=== PATIENT | male | born 1950 | race Hispanic/Latino ===

== ENCOUNTER 2018-08-21 18:17 | Observation (INO) | payer OTHER ==
[~2018-08-21] VITALS: Ht 165.1 cm; Wt 91.3 kg
[2018-08-21 18:32] LABS: BASOPHILS % (AUTO) 1.3 % (0.0-5.0); EOSINOPHILS % (AUTO) 4.3 % (0.0-8.0); HEMATOCRIT 44.8 % (42-54); LYMPHOCYTES % (AUTO) 31.9 % (21.0-51.0); MEAN CORPUSCULAR HEMOGLOBIN 30.8 pg (27.0-33.0); MEAN CORPUSCULAR HGB CONC 33.8 g/dL (32.0-36.0); MEAN CORPUSCULAR VOLUME 90.9 fL (79-99); MONOCYTES % (AUTO) 7.8 % (3.0-13.0); NEUTROPHILS % (AUTO) 54.7 % (40.0-77.0); NUCLEATED RED BLOOD CELLS 0.1 % (0.0-0.19); PLATELET COUNT (AUTO) 105 K/uL (130-400); RED BLOOD CELL COUNT(AUTO) 4.93 MIL/uL (4.50-6.20); RED CELL DISTRIBUTION WIDTH 13.8 % (11.0-15.5); WHITE BLOOD COUNT (AUTO) 6.1 K/uL (4.8-10.8)
[2018-08-21 18:46] LABS: APPEARANCE,URINE Clear (CLEAR); BILIRUBIN,URINE Negative (NEGATIVE); COLOR,URINE Yellow (YELLOW); GLUCOSE, URINE (UA) Negative (NEGATIVE); KETONES,URINE Negative (NEGATIVE); LEUKOCYTE ESTERASE ,URINE Negative (NEGATIVE); NITRATE,URINE Negative (NEGATIVE); OCCULT BLOOD,URINE Negative (NEGATIVE); PROTEIN,URINE Negative (NEGATIVE)
[2018-08-21 18:47] LABS: POTASSIUM 4.2 mmol/L (3.5-5.1)
[2018-08-21] MEDS ORDERED: NITROGLYCERIN 0.4 MG SL TAB SL ONE (18:49)
[2018-08-21] MEDS ORDERED: ASPIRIN 325 MG TABLET ONE (18:49)
[2018-08-21] MEDS ORDERED: SODIUM CHLORIDE 0.9% 500ML 500 ML IV ONE (18:49)
[2018-08-21 18:52] LABS: ALBUMIN 3.7 g/dL (3.5-5.0); BILIRUBIN,TOTAL 0.3 mg/dL (0.2-1.0); TOTAL PROTEIN, SERUM 7.2 g/dL (6.0-8.3)
[2018-08-21 18:54] LABS: AMPHET/METH SCREEN,URINE NEGATIVE (NEGATIVE); BARBITURATE SCREEN, URINE NEGATIVE (NEGATIVE); BENZODIAZEPINES SCREEN,URINE NEGATIVE (NEGATIVE); CANNABINOID SCREEN,URINE NEGATIVE (NEGATIVE); COCAINE SCREEN,URINE NEGATIVE (NEGATIVE); OPIATE SCREEN,URINE NEGATIVE (NEGATIVE); PHENCYCLIDINE SCREEN,URINE NEGATIVE (NEGATIVE)
[2018-08-21] MEDS: ATORVASTATIN CALCIUM 20 MG TABLET PO SCH (21:00)
[2018-08-21] MEDS ORDERED: NITROGLYCERIN 0.4 MG SL TAB SL PRN (21:00)
[2018-08-21] MEDS ORDERED: ONDANSETRON HCL 4 MG/2 ML VIAL IV PRN (21:00)
[2018-08-21] MEDS ORDERED: MORPHINE SULFATE 2 MG/ML 1ML SYG IV PRN (21:00)
[2018-08-21] MEDS ORDERED: ACETAMINOPHEN 325 MG TAB PO PRN (21:00)
[2018-08-21] MEDS ORDERED: ATORVASTATIN CALCIUM 20 MG TABLET ONE (21:12)
[2018-08-21 21:24] LABS: CHOLESTEROL 180 mg/dL (<200); TRIGLYCERIDES 121 mg/dL (30-200)
[2018-08-21 21:25] LABS: HDL CHOLESTEROL 39 mg/dL (29-71); LDL DIRECT 129 mg/dL (0-99)
[2018-08-21 21:43] VITALS: BP 137/81
[2018-08-21 23:25] VITALS: BP 115/65
[2018-08-22 00:38] LABS: CREATINE KINASE, TOTAL 70 U/L (21-232); MYOGLOBIN 54 ng/mL (10-92); TROPONIN I < 0.04 ng/mL (0.00-0.06)
[2018-08-22 04:25] VITALS: BP 119/62
[2018-08-22 06:32] LABS: CREATINE KINASE, TOTAL 62 U/L (21-232); MYOGLOBIN 30 ng/mL (10-92); TROPONIN I < 0.04 ng/mL (0.00-0.06)
[2018-08-22 08:00] VITALS: BP 127/78
[2018-08-22] MEDS ORDERED: PANTOPRAZOLE SODIUM 40 MG TABLET.DR PO SCH (09:00)
[2018-08-22] MEDS ORDERED: ENOXAPARIN SODIUM 40 MG/0.4 ML SYRINGE SQ SCH (09:00)
[2018-08-22] MEDS ORDERED: ASPIRIN 81MG TAB.CHEW PO SCH (09:00)
[2018-08-22] MEDS: METOPROLOL TARTRATE 25 MG TAB PO SCH ×2 (09:00→22:21)
[2018-08-22 12:00] VITALS: BP 116/75
[2018-08-22 12:35] LABS: HEMOGLOBIN A1C 6.1 % (4.0-6.0)
[2018-08-22 16:00] VITALS: BP 111/64
--- NOTE | 2018-08-22 16:00 | NUR ---
[employer]; [employer], [employer], EMPLOYED, NO MOBILITY DEFICITS, HAS [employer], JUST NEW TO MEDICARE/MANAGED MEDICARE. HAS NEVER HAD A PRIMARY MD BEFORE "BECAUSE HAS NEVER BEEN SICK' HAS APPT [facility] THIS WEEK, CANNOT REMEMBER NAME, PLAN HOME, ENCOURAGED TO ESTABLISH HIMSELF W A PRIMARY PHYSICIAN Addendum: 08/22/18 at 1914 by ZAYDA ARGUELLO RN CM Amended: Links added.
[2018-08-22 19:15] VITALS: BP 127/74
[2018-08-22] MEDS: ATORVASTATIN CALCIUM 20 MG TABLET PO SCH (22:20)
[2018-08-22 23:57] VITALS: BP 120/66
[2018-08-23 03:43] VITALS: BP 131/74
[2018-08-23 04:37] LABS: BASOPHILS % (AUTO) 1.1 % (0.0-5.0); EOSINOPHILS % (AUTO) 5.2 % (0.0-8.0); HEMATOCRIT 43.3 % (42-54); LYMPHOCYTES % (AUTO) 30.5 % (21.0-51.0); MEAN CORPUSCULAR HEMOGLOBIN 30.6 pg (27.0-33.0); MEAN CORPUSCULAR HGB CONC 33.3 g/dL (32.0-36.0); MONOCYTES % (AUTO) 7.4 % (3.0-13.0); NEUTROPHILS % (AUTO) 55.8 % (40.0-77.0); PLATELET COUNT (AUTO) 103 K/uL (130-400); RED CELL DISTRIBUTION WIDTH 13.8 % (11.0-15.5); WHITE BLOOD COUNT (AUTO) 5.5 K/uL (4.8-10.8)
[2018-08-23 04:45] LABS: CREATININE 1.1 mg/dL (0.5-1.5)
[2018-08-23] MEDS ORDERED: ASPI-1005 PO (05:43)
[2018-08-23] MEDS ORDERED: METO25 PO (05:43)
[2018-08-23] MEDS ORDERED: ATOR20TA65 PO (05:43)
[2018-08-23 07:30] VITALS: BP 116/73
--- NOTE | 2018-08-23 08:40 | NUR ---
NOTE DISCHARGE INSTRUCTIONS GIVEN TO PATIENT IN [place] AT THIS TIME. VERBALIZED UNDERSTANDING. INSTRUCTED TO SCHEDULE DOCTOR'S APPOINTMENT FOR 3 DAYS AND ASK FOR CARDIOLOGY REFERRAL AND CONSULT. REFER TO DC SUMMARY.
== END 2018-08-23 09:13 | disposition home or self-care (01) ==
LOC: EDH 18:17 → EDHIP 20:58 → 3AH 21:43
PROVIDERS: ADMIT Internal Medicine; ATTEND Internal Medicine
DX: R07.89 Other chest pain (principal); K29.70 Gastritis, unspecified, without bleeding; F17.210 Nicotine dependence, cigarettes, uncomplicated; Z79.899 Other long term (current) drug therapy
CPT/HCPCS: 36415 ×3; 71045; 80048; 80053; 80061; 80305; 81003; 82550 ×3; 83036; 83690; 83874 ×2; 83880; 84484 ×3; 85025 ×2; 93005; 96372; 99284; G0378 ×36; J1650; J7040

== ENCOUNTER 2021-05-16 17:54 | Observation (INO) | payer OTHER ==
[~2021-05-16] VITALS: Ht 165.1 cm; Wt 93.0 kg
[~2021-05-16 17:54] MED LIST: ASPI-1005 PO; ATOR20TA65 PO
[2021-05-16 18:30] LABS: BASOPHILS % (AUTO) 0.8 % (0.0-5.0); EOSINOPHILS % (AUTO) 5.7 % (0.0-8.0); HEMATOCRIT 44.4 % (42-54); LYMPHOCYTES % (AUTO) 27.3 % (21.0-51.0); MEAN CORPUSCULAR HEMOGLOBIN 30.3 pg (27.0-33.0); MEAN CORPUSCULAR HGB CONC 33.8 g/dL (32.0-36.0); MEAN CORPUSCULAR VOLUME 89.7 fL (79-99); MONOCYTES % (AUTO) 8.2 % (3.0-13.0); NEUTROPHILS % (AUTO) 57.7 % (40.0-77.0); PLATELET COUNT (AUTO) 125 K/uL (130-400); RED BLOOD CELL COUNT(AUTO) 4.95 MIL/uL (4.50-6.20); RED CELL DISTRIBUTION WIDTH 13.7 % (11.0-15.5); WHITE BLOOD COUNT (AUTO) 7.6 K/uL (4.8-10.8)
[2021-05-16 18:32] LABS: APPEARANCE,URINE Clear (CLEAR); BILIRUBIN,URINE Negative (NEGATIVE); COLOR,URINE Yellow (YELLOW); GLUCOSE, URINE (UA) Negative (NEGATIVE); KETONES,URINE Negative (NEGATIVE); LEUKOCYTE ESTERASE ,URINE Negative (NEGATIVE); NITRATE,URINE Negative (NEGATIVE); OCCULT BLOOD,URINE Negative (NEGATIVE); PH,URINE 5.5 (5.0-8.0); PROTEIN,URINE Negative (NEGATIVE)
[2021-05-16] MEDS ORDERED: NITROGLYCERIN 0.4 MG SL TAB SL ONE (18:38)
[2021-05-16] MEDS ORDERED: NITROGLYCERIN 1GM OINT 1 INCH/1GM TD ONE ×2 (18:38→19:00)
[2021-05-16] MEDS ORDERED: ASPIRIN 325MG TAB ONE (18:38)
[2021-05-16 18:43] LABS: AMPHET/METH SCREEN,URINE NEGATIVE (NEGATIVE); BARBITURATE SCREEN, URINE NEGATIVE (NEGATIVE); BENZODIAZEPINES SCREEN,URINE NEGATIVE (NEGATIVE); CANNABINOID SCREEN,URINE NEGATIVE (NEGATIVE); COCAINE SCREEN,URINE NEGATIVE (NEGATIVE); OPIATE SCREEN,URINE NEGATIVE (NEGATIVE); PHENCYCLIDINE SCREEN,URINE NEGATIVE (NEGATIVE)
[2021-05-16 18:49] LABS: CREATININE 1.3 mg/dL (0.5-1.5); POTASSIUM 4.1 mmol/L (3.5-5.1)
[2021-05-16 18:51] LABS: B-TYPE NATRIURETIC PEPTIDE 21 pg/mL (0-100)
[2021-05-16 18:52] LABS: PROTHROMBIN TIME 10.9 SEC (9.6-11.6)
[2021-05-16 18:53] LABS: ALBUMIN 3.9 g/dL (3.5-5.0); BILIRUBIN,TOTAL 0.3 mg/dL (0.2-1.0); TOTAL PROTEIN, SERUM 7.5 g/dL (6.0-8.3)
[2021-05-16] MEDS ORDERED: NITROGLYCERIN 0.4 MG SL TAB SL PRN (19:00)
[2021-05-16] MEDS ORDERED: ASPIRIN 325MG TAB PO ONE (19:00)
[2021-05-16] MEDS ORDERED: HYDRALAZINE 20MG/ML VIAL IV PRN (20:30)
[2021-05-16] MEDS ORDERED: ALPRAZOLAM 0.25 MG TABLET PO PRN (20:30)
[2021-05-16] MEDS ORDERED: ACETAMINOPHEN 325 MG TAB PO PRN ×2 (20:30)
[2021-05-16] MEDS ORDERED: METOPROLOL TARTRATE 1 MG/ML 5ML VIAL IV PRN (20:30)
[2021-05-16] MEDS: ATORVASTATIN 40 MG TABLET PO SCH (22:33)
[2021-05-17 02:08] LABS: BASOPHILS % (AUTO) 0.8 % (0.0-5.0); EOSINOPHILS % (AUTO) 6.7 % (0.0-8.0); HEMATOCRIT 39.1 % (42-54); LYMPHOCYTES % (AUTO) 26.8 % (21.0-51.0); MEAN CORPUSCULAR HEMOGLOBIN 30.8 pg (27.0-33.0); MEAN CORPUSCULAR HGB CONC 34.3 g/dL (32.0-36.0); MEAN CORPUSCULAR VOLUME 89.9 fL (79-99); MONOCYTES % (AUTO) 8.6 % (3.0-13.0); NEUTROPHILS % (AUTO) 56.6 % (40.0-77.0); PLATELET COUNT (AUTO) 112 K/uL (130-400); RED BLOOD CELL COUNT(AUTO) 4.35 MIL/uL (4.50-6.20); RED CELL DISTRIBUTION WIDTH 13.7 % (11.0-15.5); WHITE BLOOD COUNT (AUTO) 6.4 K/uL (4.8-10.8)
[2021-05-17 02:31] LABS: B-TYPE NATRIURETIC PEPTIDE 12 pg/mL (0-100)
[2021-05-17 02:34] LABS: CREATININE 1.1 mg/dL (0.5-1.5); MAGNESIUM 2.1 mg/dL (1.80-2.40); PHOSPHORUS 3.5 mg/dL (2.5-4.9); POTASSIUM 3.5 mmol/L (3.5-5.1); THYROID STIMULATING HORMONE 4.29 uIU/mL (0.36-3.74)
[2021-05-17 03:38] VITALS: BP 97/60
[2021-05-17 07:00] VITALS: BP 105/59
[2021-05-17] MEDS ORDERED: REGADENOSON 0.4 MG/5 ML PF SYG IVP SCH (08:00)
[2021-05-17] MEDS: PANTOPRAZOLE 40 MG/VIAL IVP SCH (09:07)
[2021-05-17] MEDS: ENOXAPARIN SODIUM 30 MG/0.3 ML SQ SCH (09:08)
[2021-05-17] MEDS: ASPIRIN 325MG TAB PO SCH (09:08)
[2021-05-17 11:00] VITALS: BP 128/58
[2021-05-17 16:00] VITALS: BP 133/62
[2021-05-17 20:00] VITALS: BP 114/55
[2021-05-17] MEDS: ATORVASTATIN 40 MG TABLET PO SCH (20:31)
[2021-05-18] VITALS: BP 121/58
[2021-05-18 04:00] VITALS: BP 118/67
[2021-05-18 04:16] LABS: HEMATOCRIT 42.1 % (42-54); MEAN CORPUSCULAR HGB CONC 33.5 g/dL (32.0-36.0); MEAN CORPUSCULAR VOLUME 89.6 fL (79-99); RED BLOOD CELL COUNT(AUTO) 4.7 MIL/uL (4.50-6.20); RED CELL DISTRIBUTION WIDTH 13.4 % (11.0-15.5); WHITE BLOOD COUNT (AUTO) 5.8 K/uL (4.8-10.8)
[2021-05-18 04:19] LABS: HEMOGLOBIN A1C 5.8 % (4.0-6.0)
[2021-05-18 08:00] VITALS: BP 122/56
[2021-05-18] MEDS: ENOXAPARIN SODIUM 30 MG/0.3 ML SQ SCH (09:00)
[2021-05-18] MEDS ORDERED: PANT40TA PO (10:37)
[2021-05-18] MEDS: ASPIRIN 325MG TAB PO SCH (10:51)
[2021-05-18] MEDS: PANTOPRAZOLE 40 MG/VIAL IVP SCH (10:51)
[2021-05-18 12:00] VITALS: BP 148/61
== END 2021-05-18 13:30 | disposition home or self-care (01) ==
LOC: EDH 17:54 → EDHIP 20:26 → 4CH 23:27
PROVIDERS: ADMIT Internal Medicine Critical Care Medicine; ATTEND Internal Medicine Critical Care Medicine
DX: R07.89 Other chest pain (principal); M47.812 Spondylosis without myelopathy or radiculopathy, cervical region; M47.816 Spondylosis without myelopathy or radiculopathy, lumbar region; R00.1 Bradycardia, unspecified; F17.210 Nicotine dependence, cigarettes, uncomplicated; Z79.82 Long term (current) use of aspirin; Z79.899 Other long term (current) drug therapy
CPT/HCPCS: 36415; 71045; 72125; 72131; 78452; 80048; 80053; 80305; 81003; 82550; 83036; 83735; 83880; 84100; 84443; 84484; 85025; 85027; 85610; 93005; 93017; 96372; 96374; 96376; A9500; C9113; G0378; J1650; J2785

== ENCOUNTER 2022-08-21 15:34 | Emergency (ER) | payer OTHER ==
[~2022-08-21] VITALS: Ht 167.6 cm; Wt 86.2 kg
[~2022-08-21 15:34] MED LIST changes: +PANT40TA PO
[2022-08-21 15:44] VITALS: BP 130/80
[2022-08-21 16:28] LABS: APPEARANCE,URINE CLOUDY (CLEAR); BILIRUBIN,URINE NEGATIVE (NEGATIVE); COLOR,URINE YELLOW (YELLOW); GLUCOSE, URINE (UA) 30 mg/dL (NEGATIVE); KETONES,URINE NEGATIVE (NEGATIVE); LEUKOCYTE ESTERASE ,URINE 250 Leu/uL (NEGATIVE); NITRATE,URINE NEGATIVE (NEGATIVE); OCCULT BLOOD,URINE LARGE (NEGATIVE); PH,URINE 6.5 (5.0-8.0); PROTEIN,URINE 300 mg/dL (NEGATIVE); UROBILINOGEN,URINE 0.2 mg/dL (0.2-1.0)
[2022-08-21 16:32] LABS: BACTERIA,URINE RARE /HPF (None Seen); MUCUS,URINE RARE LPF (None Seen); RBC,URINE >100 /HPF (0-1); WBC,URINE >100 /HPF (0-1); YEAST,URINE BUDDING FEW /HPF (None Seen)
[2022-08-21 16:37] LABS: BASOPHILS % (AUTO) 0.3 % (0.0-5.0); EOSINOPHILS % (AUTO) 0.3 % (0.0-8.0); HEMATOCRIT 36.7 % (42-54); LYMPHOCYTES % (AUTO) 5.7 % (21.0-51.0); MEAN CORPUSCULAR HEMOGLOBIN 30.1 pg (27.0-33.0); MEAN CORPUSCULAR HGB CONC 33.8 g/dL (32.0-36.0); MEAN CORPUSCULAR VOLUME 89.1 fL (79-99); MONOCYTES % (AUTO) 5.8 % (3.0-13.0); NEUTROPHILS % (AUTO) 86.7 % (40.0-77.0); PLATELET COUNT (AUTO) 202 K/uL (130-400); RED BLOOD CELL COUNT(AUTO) 4.12 MIL/uL (4.50-6.20); RED CELL DISTRIBUTION WIDTH 13.7 % (11.0-15.5); WHITE BLOOD COUNT (AUTO) 17.3 K/uL (4.8-10.8)
[2022-08-21 16:58] LABS: CREATININE 1.3 mg/dL (0.5-1.5); POTASSIUM 3.6 mmol/L (3.5-5.1)
[2022-08-21 17:03] LABS: ALBUMIN 2.6 g/dL (3.5-5.0); TOTAL PROTEIN, SERUM 6.4 g/dL (6.0-8.3)
[2022-08-21] MEDS ORDERED: CEFTRIAXONE 2GM VIAL IVP ONE (17:30)
[2022-08-21] MEDS ORDERED: IBUP-1493 PO (17:34)
[2022-08-21] MEDS ORDERED: CEPH500C2 PO (17:34)
== END 2022-08-21 18:06 | disposition home or self-care (01) ==
LOC: EDH 15:34
DX: N39.0 Urinary tract infection, site not specified (principal); Z20.822 Contact with and (suspected) exposure to COVID-19; Z79.899 Other long term (current) drug therapy; Z79.82 Long term (current) use of aspirin
CPT/HCPCS: 99283; 96374; 87635; 80053; 85025; 87040 ×2; 87088; 83605; 81001; 36415; C9803; J0696

== ENCOUNTER 2024-07-23 14:34 | Emergency (ER) | payer OTHER ==
[~2024-07-23] VITALS: Ht 167.6 cm; Wt 93.4 kg
[~2024-07-23 14:34] MED LIST changes: +CEPH500C2 PO; +IBUP-1493 PO
--- NOTE | 2024-07-23 16:40 | HMCIMG ---
KNEE 3VWS RT CLINICAL HISTORY: fall COMPARISON: None TECHNIQUE: AP lateral and oblique images were obtained. FINDINGS: No obvious fracture or dislocation. No joint effusion. The soft tissues appear unremarkable. No radiopaque foreign bodies. IMPRESSION: No acute findings.
[2024-07-23] MEDS ORDERED: MUPI22OI2 TP (16:48)
[2024-07-23] MEDS ORDERED: CEPH500B PO (16:48)
[2024-07-23 16:49] VITALS: BP 125/65; PULSE 62; RESP 16; TEMP 98.3; O2SAT 98
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
== END 2024-07-23 16:53 | disposition home or self-care (01) ==
LOC: EDH 14:34
DX: S80.01XA Contusion of right knee, initial encounter (principal); Z79.82 Long term (current) use of aspirin; Z79.899 Other long term (current) drug therapy; Z98.890 Other specified postprocedural states; V80.010A Animal-rider injured by fall from or being thrown from horse in noncollision accident, initial encounter; Y93.89 Activity, other specified; Y92.89 Other specified places as the place of occurrence of the external cause; Y99.8 Other external cause status
CPT/HCPCS: 73562; 99283